=== PATIENT | male | born 1940 | race Caucasian/White ===

== ENCOUNTER 2023-05-07 10:41 | Inpatient (IN) | payer MEDICARE, BC | END 2023-05-08 17:00 | disposition short-term general hospital (02) | DRG 871 | LOC: ED 10:41 → CCU 16:40 | PROVIDERS: ADMIT Internal Medicine | PROC: 3E03329 Introduction of Other Anti-infective into Peripheral Vein, Percutaneous Approach (ICD-10-PCS; principal; 2023-05-07) | PROC: 3E033XZ Introduction of Vasopressor into Peripheral Vein, Percutaneous Approach (ICD-10-PCS; 2023-05-07) | PROC: 4A033R1 Measurement of Arterial Saturation, Peripheral, Percutaneous Approach (ICD-10-PCS; 2023-05-07) | DX: A40.8 Other streptococcal sepsis (principal); I26.99 Other pulmonary embolism without acute cor pulmonale; I50.33 Acute on chronic diastolic (congestive) heart failure; R57.0 Cardiogenic shock; I76 Septic arterial embolism; I11.0 Hypertensive heart disease with heart failure; I48.91 Unspecified atrial fibrillation; I25.10 Atherosclerotic heart disease of native coronary artery without angina pectoris; E66.01 Morbid (severe) obesity due to excess calories; Z20.822 Contact with and (suspected) exposure to COVID-19; Z79.899 Other long term (current) drug therapy; Z79.01 Long term (current) use of anticoagulants; Z79.82 Long term (current) use of aspirin; Z79.02 Long term (current) use of antithrombotics/antiplatelets; Z79.811 Long term (current) use of aromatase inhibitors; Z95.1 Presence of aortocoronary bypass graft; Z68.38 Body mass index [BMI] 38.0-38.9, adult ==

== ENCOUNTER 2025-07-28 14:12 | Inpatient (IN) | payer MEDICARE, BC ==
[~2025-07-28] VITALS: Ht 177.8 cm; Wt 115.8 kg
[~2025-07-28 14:12] MED LIST: ALLERCLEAR10 MG; ALLERGY RELIEF10 M1 PO; ALLOPURINOL300 MG PO; AMIODARONE HCL200 MG; AMLODIPINE BESYL5 MG PO; ASCORBIC ACID500 M3 PO; ASPIRIN81 MG PO; ATORVASTATIN CA20 MG PO; CARVEDILOL6.25 MG PO; CO Q-10300 MG PO; COREG25 MG; ELIQUIS5 MG PO; FIBER625 MG PO; FISH OIL 1,0001 EAC2 PO; GABAPENTIN600 MG PO; GLUCOSAMINE1000 MG PO; GRALISE300 MG PO; LIPITOR10 MG PO; LISINOPRIL10 MG PO; MAXIMUM DAILY1 EACH; OMEPRAZOLE20 MG PO; PANTOPRAZOLE SO40 MG PO; TIMOLOL MALEATE5 M2 OD; TURMERIC500 M2 PO; VITAMIN D350 MC3 PO; ZESTRIL5 MG PO
--- OUTSIDE RECORDS SUMMARY | 2025-07-28 14:23 | XMS ---
PreManage Notification: KENDAL CANTU Security Electrolysis Needle Operator Events No recent Security Events currently on file CRITERIA MET - [facility] - 2 Visits in 30 Days CARE PROVIDERS There are no care providers on record at this time. Alistair has no Care Guidelines for this patient. Denis VISIT COUNT (12 MO.) 1 [facility] [address] [place], [place] [address]Stephania TOTAL 2 NOTE: Visits indicate total known visits. ED/C VISIT TRACKING (12 MO.) 07/28/2025 14:12 ANGEL [facility] [place] TYPE: Emergency COMPLAINT: - SHORTNESS OF BREATH 07/07/2025 19:59 [facility] TYPE: Emergency DIAGNOSES: - Acute kidney failure, unspecified - Heart failure, unspecified - Non-pressure chronic ulcer of other part of right foot with unspecified severity - Pulmonary hypertension, unspecified - Shortness of Breath INPATIENT VISIT TRACKING (12 MO.) 07/07/2025 19:59 [facility] TYPE: Transplant DIAGNOSES: - Acute combined systolic (congestive) and diastolic (congestive) heart failure - Acute kidney failure, unspecified - Acute respiratory failure with hypoxia - Atrial septal defect, unspecified - Bradycardia, unspecified - Encounter for palliative care - Heart failure, unspecified - Hypotension, unspecified - Ischemic cardiomyopathy - Non-pressure chronic ulcer of other part of right foot with unspecified severity - Non-ST elevation (NSTEMI) myocardial infarction - Nonrheumatic mitral (valve) insufficiency - Paroxysmal atrial fibrillation - Personal history of (corrected) congenital malformations of heart and circulatory system - Pulmonary hypertension, unspecified - Typical atrial flutter - Unspecified open wound, left ankle, subsequent encounter 05/26/2025 09:02 [facility] TYPE: Cardiology DIAGNOSES: - Acute combined systolic (congestive) and diastolic (congestive) heart failure - Atherosclerosis of coronary artery bypass graft(s), unspecified, with other forms of angina pectoris - Chronic kidney disease, stage 3b - Essential (primary) hypertension - Nonrheumatic mitral (valve) insufficiency [email or web address]
[2025-07-28 14:36] LABS: BASOPHILS 0.1 % (0.2-1.2); EOSINOPHILS 1.2 % (0.8-7.0); LYMPHOCYTES 14.8 % (21.8-53.1); MCH 27.2 PG (25.7-32.2); MCHC 31.2 g/dL (32.3-36.5); MCV 87.0 fL (79.0-92.2); MONOCYTES 9.0 % (5.3-12.2); NEUTROPHILS 74.8 % (34.0-67.9); RBC 4.16 M/uL (4.63-6.08)
[2025-07-28] MEDS ORDERED: ELIQUIS2.5 MG PO (14:41)
[2025-07-28] MEDS ORDERED: METOPROLOL TART25 MG PO (14:43)
[2025-07-28] MEDS ORDERED: TORSEMIDE20 MG PO (14:44)
[2025-07-28] MEDS ORDERED: ALLOPURINOL300 MG PO (14:53)
[2025-07-28] MEDS ORDERED: KLOR-CON M1010 MEQ PO (14:54)
[2025-07-28] MEDS ORDERED: PLAVIX75 MG PO (14:54)
[2025-07-28] MEDS ORDERED: METOLAZONE5 MG PO (14:56)
[2025-07-28 14:58] LABS: ALT (SGPT) 75.0 U/L (14-59); AST (SGOT) 54.0 U/L (15-37); GLOMERULAR FILTRATION RATE,EST 21.0 mL/min (>60); PROTEIN, TOTAL 7.8 g/dL (6.4-8.2); UREA NITROGEN 80.0 mg/dL (7-18)
[2025-07-28] MEDS ORDERED: FUROSEMIDE 100 MG/10 ML VIAL IV ONE (15:45)
[2025-07-28] MEDS ORDERED: metOLazone 2.5 MG TAB PO SCH (17:18)
[2025-07-28] MEDS ORDERED: POTASSIUM CHLORIDE 10 MEQ TABCR PO ONE ×2 (17:30→20:00)
[2025-07-28 18:47] VITALS: BP 122/78
--- NOTE | 2025-07-28 19:15 | NUR ---
REPORT RECEIVED FROM ARTIE RN AND GEOVANI ARZATE. PATIENT RESTING IN BED COMFORTABLY, SON BROUGHT HOME CPAP FOR PATIENT, RT CONTACTED REGARDING HOME CPAP. RESPIRATIONS EVEN AND UNLABORED, NC IN PLACE 5L AT THIS TIME. CPOX AT BEDSIDE. TELE #[address] PATIENT DENIES FURTHER NEEDS, CALL LIGHT IN REACH
[2025-07-28] MEDS ORDERED: metOLazone 2.5 MG TAB PO ONE (20:00)
[2025-07-28 20:01] VITALS: BP 116/74
[2025-07-28 20:02] VITALS: BP 116/74
--- NOTE | 2025-07-28 20:04 | NUR ---
PATIENT MEDICATED PER EMAR. PASSED SWALLOW EVAL. FLATWORK FINISHER HAND IN ROOM TO DRAW BLOOD PER ORDER. PATIENT DENIES FURTHER NEEDS, CALL LIGHT IN REACH
[2025-07-28] MEDS ORDERED: METOPROLOL TARTRATE 25 MG TAB PO SCH (21:00)
[2025-07-28] MEDS ORDERED: APIXABAN 2.5 MG TAB PO SCH (21:00)
[2025-07-28] MEDS ORDERED: TORSEMIDE 20 MG TAB PO SCH (21:00)
[2025-07-28] MEDS ORDERED: GABAPENTIN 300 MG CAP PO SCH (21:00)
[2025-07-28] MEDS ORDERED: GABAPENTIN 100 MG CAP PO SCH (21:00)
[2025-07-28 21:08] VITALS: BP 119/72
--- NOTE | 2025-07-28 21:15 | NUR ---
PATIENT GIVEN SCHEDULED MEDICATIONS PER ORDER. VS OBTAINED AND RECORDED, OUTPUT DOCUMENTED. FULL ASSESSMENT COMPLETE, CLEAN LINENS UNDER PATIENT. PATIENT HAS CPAP IN PLACE, RESPIRATIONS EVEN AND UNLABORED. HE REPORTS NUMBNESS AND TINGLING IN HIS BLE, WHICH HE STATES IS CHRONIC D/T NEUROPATHY. BLE ARE WRAPPED WITH COBAN AND GUAZE, PATIENT SEES WOUND CARE IN [place]. DID NOT VISUALIZE WOUNDS UNDER WRAP. PATIENT DENIES FURTHER NEEDS, CALL LIGHT IN REACH.
--- NOTE | 2025-07-28 23:39 | NUR ---
ROUNDED ON PATIENT, PATIENT RESTING WITH EYES CLOSED. RESPIRATIONS EVEN AND UNLABORED, CPAP IN PLACE. CPOX AT BEDSIDE. NO NEEDS IDENTIFIED, CALL LIGHT IN REACH
[2025-07-29] VITALS (11 sets, daily range): BP systolic 109–121; BP diastolic 67–76
--- NOTE | 2025-07-29 01:35 | NUR ---
TUBER MACHINE OPERATOR OBTAINED VITALS AND I&O. PT STATES NO NEEDS AT THIS TIME. CALL LIGHT WITHIN REACH,
--- NOTE | 2025-07-29 03:06 | NUR ---
CALL LIGHT ANSWERED, PATIENT UP TO BSC WITH X2 PERSON HEAVY ASSIST. PATIENT STATED HAD TO HAVE BM, ONLY SMEAR. BACK TO BED, PATIENT VERY DIFFICULTY TO MOVE. REPOSITIONED AND BOOSTED IN BED. 4L NC ON PATIENT WITH AMBULATION, CPAP ON PATIENT WHEN BACK IN BED. DENIES FURTHER NEEDS, CALL LIGHT IN REACH. GIVEN FRESH WATER.
[2025-07-29 05:41] LABS: BASOPHILS 0.3 % (0.2-1.2); EOSINOPHILS 1.0 % (0.8-7.0); LYMPHOCYTES 16.6 % (21.8-53.1); MCH 27.4 PG (25.7-32.2); MCHC 31.9 g/dL (32.3-36.5); MCV 85.8 fL (79.0-92.2); MONOCYTES 8.7 % (5.3-12.2); NEUTROPHILS 73.3 % (34.0-67.9); RBC 3.87 M/uL (4.63-6.08)
--- NOTE | 2025-07-29 05:45 | NUR ---
ROUNDED ON PATIENT, VS OBTAINED AND RECORDED. OUTPUT DOCUMENTED. CPAP IN PLACE, PATIENT RESTING WITH EYES CLOSED, RESPIRATIONS EVEN AND UNLABORED. NO NEEDS IDENTIFIED, CALL LIGHT IN REACH
[2025-07-29 05:52] LABS: GLOMERULAR FILTRATION RATE,EST 22.0 mL/min (>60); UREA NITROGEN 87.0 mg/dL (7-18)
--- NOTE | 2025-07-29 06:02 | EKG ---
[facility] [address] [place], [place] [address] Signed Undetermined rhythm Rightward axis Nonspecific intraventricular conduction delay ST \T\ T wave abnormality, consider inferolateral ischemia Abnormal ECG No previous ECGs available Confirmed by JOÃO VIGIL MD ([id number]) on 07/29/2025 6:02:06 AM Electronically Signed By: JOÃO VIGIL 07/29/25 0602 PATIENT NAME: KENDAL CANTU Electrocardiogram DATE OF : 38 PHYSICIAN: JOÃO VIGIL REPORT #: [id number] REPORT IS CONFIDENTIAL AND NOT TO BE RELEASED WITHOUT AUTHORIZATION
--- NOTE | 2025-07-29 07:45 | NUR ---
RECEIVED REPORT FROM GEOVANI EDWARDS. PT LAYING IN BED W/ EYES CLOSED/CPAP ON. NO NEEDS AT THIS TIME. CALL LIGHT WITHIN REACH.
--- NOTE | 2025-07-29 08:12 | NUR ---
ALERT AND ORIENTED IN BED. ASSIST WITH HEARING AIDES. PATIENT LIVES IN HOUSE. HAS NO STAIRS, DOES HAVE A RAMP TO GET INSIDE. PATIENT HAS WALKER, SHOWER CHAIR AND CPAP. STATES HE DRIVES AT BASELINE. HAS NO FINANCIAL ISSUES, HE IS ABLE TO PAY UTILITIES AND FOR FOOD AND MEDICATIONS WITHOUT DIFFICULTY. PLANS TO DC TO HOME WHEN MEDICALLY READY. CURRENTLY ON ROOM AIR.
[2025-07-29] MEDS ORDERED: PANTOPRAZOLE SODIUM 40 MG TABEC PO SCH (09:00)
[2025-07-29] MEDS ORDERED: ATORVASTATIN 40 MG TAB PO SCH (09:00)
--- NOTE | 2025-07-29 09:07 | NUR ---
RECIEVED CALL FROM NEELA AT [facility]. THEY CURRENTLY HAVE PATIENT ON SERVICES AND WILL NEED RESUMPTION ORDERS WHEN HE DISCHARGES. REQUESTING PHYSICIAN NOTES. FAXED NOTES TO [facility]
[2025-07-29] MEDS ORDERED: POTASSIUM CHLORIDE 10 MEQ TABCR PO ONE (09:30)
--- NOTE | 2025-07-29 10:14 | NUR ---
UR CLINICAL REVIEW: 2 MN FOR VERSALUS-PER TUBE SIZER AND CUTTER OPERATOR MEETS INPT FOR CHF WITH NEED FOR IV DIURESIS, SERIAL LABS AND MONITORING MEDICARE INPT 07/28/25 @ 7844 ORDER MATCHES REG NO AUTH REQUIRED PER MEDICARE GUIDELINES DISCHARGE TO HOME WHEN STABLE
[2025-07-29] MEDS ORDERED: ALBUTEROL SULFATE 0.083% 3 ML VIAL INH PRN (10:30)
[2025-07-29] MEDS ORDERED: PHARMACY RENAL DOSE ADJUSTMENT 1 DOSE MISC PO SCH (12:00)
[2025-07-29 12:28] LABS: GLOMERULAR FILTRATION RATE,EST 22.0 mL/min (>60); UREA NITROGEN 88.0 mg/dL (7-18)
[2025-07-29] MEDS ORDERED: POLYETHYLENE GLYCOL 3350 1 PACKET PO SCH (12:45)
[2025-07-29] MEDS ORDERED: IPRATROPIUM BROMIDE 2.5 ML VIAL INH SCH (14:00)
--- NOTE | 2025-07-29 14:48 | NUR ---
DOCKETING SPECIALIST ASKS FOR A WOUND CONSULT ON THIS PATIENT. I PRESENT TO PATIENT'S ROOM AND PATIENT AND SPOUSE BOTH VERBALIZE THEY ARE CURRENTLY UNDER THE DIRECT CARE OF DR VICTORIA OF BILATERAL LEG/HEEL/FOOT WOUNDS. I RELAY THIS TO ENTERTAINMENT DIRECTOR, VIVEK, AND SHE VERBALIZES SHE WILL FOLLOW UP WITH DR VICTORIA FOR WOUND ORDERS.
[2025-07-29] MEDS ORDERED: CO Q-10300 MG PO (16:02)
[2025-07-29] MEDS ORDERED: ZYRTEC10 MG PO (16:02)
[2025-07-29] MEDS ORDERED: VITAMIN D3125 MC2 PO (16:02)
--- NOTE | 2025-07-29 16:03 | NUR ---
MED REC COMPLETE
--- NOTE | 2025-07-29 17:13 | NUR ---
DR. VIGIL CONTACTED VIA PHONE TO NOTIFY THAT PT HAS LOWER EXTREMITY WOUNDS, MANAGED DR. VICTORIA AND [facility]. DISCUSSED CURRENT HOME HEALTH WOUND CARE ORDERS AND DRESSING PT ARRIVED IN. ORDERED RECEIVED TO CONTINUE WITH CURRENT WOUND CARE. UNNA'S BOOTS IN PLACE TO BLE UPON ASSESSMENT, REMOVED. NOTED NEWLY EPILETHIALIZED WOUND TO LEFT FOX, LEFT OPEN TO AIR. FULL THICKNESS WOUND TO RIGHT LATERAL LOWER LEG, PERIWOUND INTACT. FULL THICKNESS WOUND TO RIGHT PLANTAR SURFACE OVER FIRST METATARSAL HEAD, EDGES ARE THICKEND WITH CALLUS OVER PERIWOUND. WOUND BASE IS PINK, NON-GRANULAR AND DULL. OFF LOADING FELT IN PLACE AROUND WOUND BASE UPON ASSESSMENT, LEFT IN PLACE. VASHE SOAK APPLIED OVER EACH WOUND BASE AND ALLOWED TO SOAK X10 MINUTES. BLE INTACT SINK CLEANSED WITH VASHE. CAVILON SKIN BARRIER FILM APPLIED TO PERIWOUND SKIN OF EACH WOUND AND ALLOWED TO DRY. MAXORB SILVER ALGINATE PLACED IN WOUND BASE OF RIGHT FOOT WOUND AND COVERED WITH PLAIN FOAM. SORBACT CONTACT LAYER PLACED OVER RIGHT LATERAL LOWER EXTREMITY WOUND AND COVERED WITH PLAIN FOAM. UNNA-Z APPLIED TO BLE FROM TOES TO KNEE FOLLOWED BY CAST PADDING AND COBAN AT 50% STRETCH. PT TOLERATED WELL. INDUSTRIAL MAINTENANCE REPAIRER HELPER < 3 TO BLE, MOTION INTACT. LOS R/T NEUROPATHY. HEMOSIDERIN STAINING NOTED TO BLE IN GAITER REGION. TRACE EDEMA NOTED IN LLE, 2+ IN RLE.
--- NOTE | 2025-07-29 17:51 | NUR ---
pt had a bloody nares. dry nares and O2 usage. was using vaseline lotion to nares. instructed not to and kyjelly given instead. reasoning explained, stated understanding. brought multiple eye drops. instructed not to use until MD approves. "I have dry eyes and need those drops". removed and will ask MD for approval
--- NOTE | 2025-07-29 18:00 | NUR ---
PT BACK TO BED. BLANKETS FOR WARMTH AND PARTIAL LINEN CHANGE. TOOK OUT TRASH AND EMPTIED PUREWICK. ROOM CLEANED UP AND PT IN BED - VISITORS LEFT THE ROOM. CALL LIGHT WITHIN REACH.
--- NOTE | 2025-07-29 19:48 | NUR ---
KENDAL DECLINED NEBULIZED TREATMENT AFTER THE MEDICATIONS WERE SCANNED IN AND PLACED IN THE NEBULIZER CUP. RT FILLED HUMIDIFICATION IN PATIENT'S HOME AUTO CPAP.
[2025-07-29] MEDS ORDERED: BUDESONIDE 0.5 MG/2 ML VIAL INH SCH (20:00)
--- NOTE | 2025-07-29 20:50 | NUR ---
PT ASSESSED AND MEDICATIONS GIVEN. VSS. PT ON RA. TELE READING PACED RHYTHM. IV X2 FLUSHED AND PATENT, SL. EDEMA NOTED +3 ON BLE. KRISTYN BOOTS NOTED ON BLE. BOTTOM NOTED TO HAVE BLANCHABLE REDNESS. GENERALIZED BRUISING NOTED. BED ALARM ON. SAFETY PRECAUTIONS MAINTAINED. CALL LIGHT WITHIN REACH. WILL CONTINUE TO MONITOR.
--- NOTE | 2025-07-29 23:24 | NUR ---
CALL LIGHT ANSWERED. PT NEEDED TO USE BATHROOM. THIS LABELING ASSOCIATE AND GEOVANI GARCIA 2PA WITH [facility] TO [facility]. PT HAD SMALL BM AND DRAW SHEET AND CHUCKS PAD CHANGED. PT ASSISTED BACK TO BED. PT STATES NO FURTHER NEEDS AT THIS TIME. CALL LIGHT WITHIN REACH.
[2025-07-30] VITALS (12 sets, daily range): BP systolic 87–113; BP diastolic 44–67
--- NOTE | 2025-07-30 06:26 | NUR ---
PT RESTED SOME DURING THE SHIFT. VSS. PT RA WHEN AWAKE, USES HOME CPAP WHEN SLEEPING. PT ASSISTED UP TO BSC DURING SHIFT. SMALL BM NOTED. MALE PUREWICK IN PLACE, SOME OUTPUT NOTED. SAFETY PRECAUTIONS MAINTAINED. CALL LIGHT WITHIN REACH. WILL CONTINUE TO MONITOR.
[2025-07-30 06:29] LABS: BASOPHILS 0.2 % (0.2-1.2); EOSINOPHILS 0.3 % (0.8-7.0); LYMPHOCYTES 17.0 % (21.8-53.1); MCH 27.2 PG (25.7-32.2); MCHC 31.4 g/dL (32.3-36.5); MCV 86.6 fL (79.0-92.2); MONOCYTES 10.7 % (5.3-12.2); NEUTROPHILS 71.5 % (34.0-67.9); RBC 3.82 M/uL (4.63-6.08)
[2025-07-30 06:38] LABS: GLOMERULAR FILTRATION RATE,EST 20.0 mL/min (>60); UREA NITROGEN 89.0 mg/dL (7-18)
--- NOTE | 2025-07-30 07:32 | NUR ---
PATIENT IN CHAIR AT THIS TIME. POINT OF CARE SPECIALIST ASSISTED PATIENT TO BEDSIDE COMMODE FROM BED AND THEN TO CHAIR. THIS POINT OF CARE SPECIALIST CHANGED PATIENTS LINENS. CALL LIGHT WITHIN REACH, NO FURTHER NEEDS AT THIS TIME.
[2025-07-30] MEDS ORDERED: SPIRONOLACTONE 25 MG TAB PO SCH (09:15)
--- NOTE | 2025-07-30 10:05 | NUR ---
PT CALLS, THIS RN TO BEDSIDE. PT STATES HE WOULD LIKE TO PUT ON HIS CPAP, THIS RN ASSISTS PT WITH PLACEMENT OF CPAP. CPAP MACHINE OUT OF WATER, RT CALLED AND STATES THEY WILL BRING SOME. PT AND STATE NO FURTHER NEEDS AT THIS TIME, CALL LIGHT WITHIN REACH.
--- NOTE | 2025-07-30 10:54 | NUR ---
Patient is awake, alert and oriented x3, no acute distress. Patient reports improved shortness of breath. Patient stood and marched with physical therapy, 2p standby assist with walker. Patient assisted back to bed, pt requesting to take a nap with cpap machine. Patient's at bedside.
[2025-07-30] MEDS ORDERED: XALATAN2.5 ML OU (14:27)
[2025-07-30 14:39] LABS: GLOMERULAR FILTRATION RATE,EST 18.0 mL/min (>60); UREA NITROGEN 94.0 mg/dL (7-18)
--- NOTE | 2025-07-30 16:38 | NUR ---
Patient reports nausea. Vital signs are stable, afebrile. Admin zofran 4mg iv at this time. Patient's at bedside.
--- NOTE | 2025-07-30 18:37 | NUR ---
RUDI CARE AND NEW PUREWICK PLACED BY THIS TECHNICAL EXPERT. CALL LIGHT AND PERSONAL ITEMS ARE WITHIN REACH. NO OTHER CARES WERE REQUESTED.
--- NOTE | 2025-07-30 19:49 | NUR ---
GOT REPORT FROM DAY SHIFT NURSE.
--- NOTE | 2025-07-30 20:46 | NUR ---
PT SITTING UP IN BED WATCHIN TV. VITALS DONE, WATER REFILLED, BOOSTED UP IN BED. CALL LIGHT IN REACH, NO NEEDS AT THIS TIME.
[2025-07-30] MEDS ORDERED: ARTIFICIAL TEARS 15 ML BTL OU SCH (21:00)
[2025-07-30] MEDS ORDERED: LATANOPROST EYE DROPS OU SCH (21:00)
--- NOTE | 2025-07-30 22:09 | NUR ---
PATIENT RESTING WITH NC IN. PUREWICK IN PLACE. PATIENT HAS UNNA BOOTS ON. IS AT HOME GETTING REST. HE WOULD LIKE HER ADVISED OF EVERYTHING OR ANY CHANGES. PT IS SL BUT IV ACCESS IS INCORRECT IN CHARTING. PATIENT HAS A LEFT HAND IV AND A RIGHT AC IV. BOTH SL. WATER AT BEDSIDE. CALL LIGHT WITHIN REACH, BED IN LOW POSTION.
--- NOTE | 2025-07-30 22:39 | NUR ---
PATIENT UP TO BEDSIDE COMMODE WITH 2 PERSON ASSIST FOR A BM.
--- NOTE | 2025-07-30 23:43 | NUR ---
PATIENT SLEEPING, REGULAR RESPIRATIONS NOTED.
--- NOTE | 2025-07-31 01:05 | NUR ---
RT WAS ON THE FLOOR, ASKED HER TO CHECK ON PATIENT THIS NURSE FEELS LIKE HE HAS SOME AIR HUNGER BUT HIS OXYGEN IS HOLDING GOOD ON 1L. PT WAS UP TO THE COMMODE AND HAD A SOFT BOWEL MOVEMENT.
[2025-07-31 01:48] VITALS: BP 123/83
--- NOTE | 2025-07-31 01:50 | NUR ---
ASSISTED PT OOB TO BSC AND BACK TO BED IN LEFT SIDE LYING POSITION. VITALS DONE, PUREWICK EMPTIED. CALL LIGHT IN REACH, NO NEEDS AT THIS TIME.
--- NOTE | 2025-07-31 02:24 | NUR ---
PATIENT SLEEPING ON HIS LEFT SIDE.
[2025-07-31 02:32] VITALS: BP 123/83
[2025-07-31 04:39] VITALS: BP 109/66
--- NOTE | 2025-07-31 04:42 | NUR ---
PATIENT UP TO BEDSIDE COMMODE WITH ASSISTANT STATISTICIAN AND NURSE. PATIENT HAD SMALL SOFT BM. VITALS DONE AND DAILY WEIGHT DONE. PATIENT DOWN TO 115.8KG THIS MORNING. PATIENT REQUESTING TO SLEEP ON HIS LEFT SAID AGAIN. BED LOW, CALL LIGHT WITHIN REACH. PATIENT HAD SOME WATER.
--- NOTE | 2025-07-31 05:36 | NUR ---
PATIENT FINALLY LOOKS LIKE HE IS GETTING SOME REST.
--- NOTE | 2025-07-31 07:45 | NUR ---
REPORT RECIEVED FROM GEOVANI REYES. PATIENT CALLED REQUESTING TO USE THE BATHROOM FOR A BM. GEOVANI MORENO AND THIS RN ASSISTED PATIENT TO BEDSIDE COMMODE. PATIENT TOLERATED WELL. OXYGEN TURNED UP TO 3L NC DUE TO PATIENT WITH SOB WITH ACTIVITY. PATIENT EDUCATED TO USE CALL LIGHT WHEN FINISHED WITH COMMODE. PATIENT WITH VERBAL UNDERSTANDING. CALL LIGHT IS WITHIN REACH.
--- NOTE | 2025-07-31 08:01 | NUR ---
PATIENT FINISHED WITH COMMODE. TIFFANIE RN AND THIS RN IN ROOM ASSISTING PATIENT. PATIENT UP TO CHAIR AFTER COMMODE AND TOLERATED WELL. BREAKFAST TRAY SET UP IN FROM OF PATIENT. WARM BLANKET PROVIDED. PATIENT IS WITHOUT FURTHER NEEDS AT THIS TIME. CALL LIGHT AND PERSONAL BELONGINGS ARE WITHIN REACH.
--- NOTE | 2025-07-31 09:30 | NUR ---
In with pt with the respiratory therapist to assist her with qualifying the pt for home O2. The pt states he is on O2 at home but doesn't know how much, but that his knows. After ambulating with the RT, it is noted that the pt had to stop twice and required 4LPM via NC. Sats dropped down to 77 at the lowest. Pt back to bed. arrives and is speaking with RT now.
[2025-07-31 09:38] VITALS: BP 92/55
--- NOTE | 2025-07-31 09:40 | NUR ---
PT SITTING IN CHAIR, VISITORS IN THE ROOM. NC OFF AT THIS TIME. PT BREATHING WELL. CALL LIGHT WITHIN REACH. TRASH REMOVED AND ROOM CLEANED.
--- NOTE | 2025-07-31 09:49 | NUR ---
PATIENT'S METOLAZONE HELD DUE TO PATIENT'S BLOOD PRESSURE OF 98/51 WITH A MAP OF 63. DR VIGIL NOTIFIED. MD WITH VERBAL ORDER TO HOLD DOSE FOR TODAY.
[2025-07-31] MEDS ORDERED: METOLAZONE2.5 MG PO (09:56)
--- NOTE | 2025-07-31 10:00 | NUR ---
PATIENT SITTING UP IN HIS CHAIR WITH HIS AT BEDSIDE. PATIENT ASSESSMENT COMPLETED. PATIENT DENIES ANY PAIN OR NEEDS AT THIS TIME. CALL LIGHT AND PERSONAL BELONGINGS ARE WITHIN REACH.
[2025-07-31 10:09] VITALS: BP 92/55
--- NOTE | 2025-07-31 11:26 | NUR ---
PATIENT UP IN CHAIR. PT AND EDUCATION OFFICER IN ROOM ASSISTING PATIENT WITH AMBULATION. CALL LIGHT IS WITHIN REACH. PATIENT'S AT BEDSIDE.
[2025-07-31 11:51] VITALS: BP 97/60
--- NOTE | 2025-08-01 09:55 | NUR ---
CLINICALS, FACESHEET, NOTES, ORDER FAXED TO [facility].
== END 2025-07-31 13:05 | disposition home or self-care (01) | DRG 280 ==
LOC: ED 14:12 → MS 17:19
PROVIDERS: Emergency Medicine; ADMIT Internal Medicine; ATTEND Internal Medicine
DX: I11.0 Hypertensive heart disease with heart failure (principal); I50.43 Acute on chronic combined systolic (congestive) and diastolic (congestive) heart failure; I21.A1 Myocardial infarction type 2; J96.01 Acute respiratory failure with hypoxia; N17.9 Acute kidney failure, unspecified; Q21.0 Ventricular septal defect; I48.91 Unspecified atrial fibrillation; E78.00 Pure hypercholesterolemia, unspecified; G47.33 Obstructive sleep apnea (adult) (pediatric); Z99.89 Dependence on other enabling machines and devices; Z95.1 Presence of aortocoronary bypass graft; Z79.01 Long term (current) use of anticoagulants; Z79.899 Other long term (current) drug therapy; Z95.0 Presence of cardiac pacemaker
CPT/HCPCS: 36415; 71045; 80048; 80053; 83735; 83880; 84484; 85025; 93005; 93010; 94640; 94762; 94799; 96374; 97162; 97530; 99285-25; A6590; A9270; J1938; J2405

== ENCOUNTER 2025-08-05 12:58 | Inpatient (IN) | payer MEDICARE, BC ==
[~2025-08-05] VITALS: Ht 177.8 cm; Wt 123.4 kg
[~2025-08-05 12:58] MED LIST changes: +ELIQUIS2.5 MG PO; +KLOR-CON M1010 MEQ PO; +METOLAZONE2.5 MG PO; +METOLAZONE5 MG PO; +METOPROLOL TART25 MG PO; +PLAVIX75 MG PO; +TORSEMIDE20 MG PO; +VITAMIN D3125 MC2 PO; +XALATAN2.5 ML OU; +ZYRTEC10 MG PO
--- OUTSIDE RECORDS SUMMARY | 2025-08-05 13:04 | XMS ---
PreManage Notification: KENDAL CANTU Security Supervisor Hanging And Trimming Events No recent Security Events currently on file CRITERIA MET - [facility] - 2 Visits in 30 Days CARE PROVIDERS There are no care providers on record at this time. Alistair has no Care Guidelines for this patient. Denis VISIT COUNT (12 MO.) 2 [facility] NOTE: Visits indicate total known visits. ED/C VISIT TRACKING (12 MO.) 08/05/2025 12:58 [facility] [place] TYPE: Emergency COMPLAINT: - ALTERED MENTAL STATUS 07/28/2025 14:12 [facility] [place] TYPE: Emergency COMPLAINT: - SHORTNESS OF BREATH 07/07/2025 19:59 [facility] TYPE: Emergency DIAGNOSES: - Acute kidney failure, unspecified - Heart failure, unspecified - Non-pressure chronic ulcer of other part of right foot with unspecified severity - Pulmonary hypertension, unspecified - Shortness of Breath INPATIENT VISIT TRACKING (12 MO.) 07/28/2025 17:19 AN[facility]EL [facility] [place] TYPE: Medical Surgical COMPLAINT: - CHF DIAGNOSES: - Acute kidney failure, unspecified - Acute on chronic combined systolic (congestive) and diastolic (congestive) heart failure - Acute respiratory failure with hypoxia - Dependence on other enabling machines and devices - Hypertensive heart disease with heart failure - intermediate card tender (current) use of anticoagulants - Myocardial infarction type 2 - Obstructive sleep apnea (adult) (pediatric) - Other intermediate (current) drug therapy - Presence of aortocoronary bypass graft - Presence of cardiac pacemaker - Pure hypercholesterolemia, unspecified - Shortness of breath - Unspecified atrial fibrillation - Ventricular septal defect 07/07/2025 19:59 [facility] TYPE: Transplant DIAGNOSES: - [...] wound, left ankle, subsequent encounter 05/26/2025 09:02 [facility] TYPE: Cardiology DIAGNOSES: - Acute combined systolic (congestive) and diastolic (congestive) heart failure - Atherosclerosis of coronary artery bypass graft(s), unspecified, with other forms of angina pectoris - Chronic kidney disease, stage 3b - Essential (primary) hypertension - Nonrheumatic mitral (valve) insufficiency [email or web address]
[2025-08-05 13:34] LABS: BASOPHILS 0 % (0.2-1.2); EOSINOPHILS 0.1 % (0.8-7.0); LYMPHOCYTES 8.9 % (21.8-53.1); MCH 26.9 PG (25.7-32.2); MCHC 32.8 g/dL (32.3-36.5); MCV 81.8 fL (79.0-92.2); MONOCYTES 5.6 % (5.3-12.2); NEUTROPHILS 84.9 % (34.0-67.9); RBC 4.17 M/uL (4.63-6.08)
[2025-08-05 13:57] LABS: ALT (SGPT) 280.0 U/L (14-59); AST (SGOT) 339.0 U/L (15-37); GLOMERULAR FILTRATION RATE,EST 8.0 mL/min (>60); PROTEIN, TOTAL 6.6 g/dL (6.4-8.2); UREA NITROGEN 139.0 mg/dL (7-18)
[2025-08-05] MEDS ORDERED: ARTIFICIAL TEARS 15 ML BTL OU PRN (18:00)
[2025-08-05] MEDS ORDERED: HALOPERIDOL LACTATE 5 MG/ML VIAL IV PRN ×2 (18:00)
[2025-08-05] MEDS ORDERED: MORPHINE SULFATE 10 MG/ML VIAL IV PRN (18:00)
[2025-08-05] MEDS ORDERED: LORazepam 2 MG/ML VIAL IV PRN ×3 (18:00)
[2025-08-05] MEDS ORDERED: ATROPINE SULFATE 1% OPTH DROPS SL PRN (18:00)
[2025-08-05] MEDS ORDERED: MORPHINE SULFATE 4 MG/ML VIAL IV PRN ×2 (18:00)
[2025-08-05] MEDS ORDERED: ONDANSETRON 4 MG TAB ODT SL PRN (18:00)
[2025-08-05] MEDS ORDERED: PROCHLORPERAZINE MALEATE 10 MG TAB PO PRN (18:00)
[2025-08-05 18:47] VITALS: BP 122/75
--- NOTE | 2025-08-05 18:53 | NUR ---
Patient to the medical floor. Patient is alert to self and place. SP02 80%, pt denies wanting oxygen and or cpap. Patient verbalized "i'm ready to go". Patient's and daughter at bedside. Patient's respirations are labored. Patient has hearing aids in place. Patient tolerating sips of water for comfort, swallow is intact.
[2025-08-05] MEDS ORDERED: SCOPOLAMINE 1 MG/3 DAYS PATCH 1 EACH TDSY TD SCH (19:00)
--- NOTE | 2025-08-05 19:30 | NUR ---
RECEIVED REPORT FROM GEOVANI SINGLETON. LEAD RETAIL SALES ASSOCIATE'S IN ROOM APPLYING MALE PUREWICK. PT DENIES NEEDS AT THIS TIME. FAMILY AT BEDSIDE.
--- NOTE | 2025-08-05 19:31 | NUR ---
THIS SCRUB TECH AND SCRUB TECH JEFFERSON PLAACED MALE FRANCISCOWILYNN AND PLACED A BRIEF ON PT. PT STATES NO FURTHER NEEDS AT THIS TIME. CALL LIGHT WITHIN REACH AND FAMILY IN ROOM.
--- NOTE | 2025-08-05 19:40 | NUR ---
MD CONTACTED REGARDING PT'S PACEMAKER AND COMFORT CARE STATUS. MD WILL COME TO BEDSIDE TO DISCUSS W/ PT AND FAMILY.
--- NOTE | 2025-08-05 21:00 | NUR ---
PT RESTING IN BED SURROUNDED BY FAMILY. SLIGHTLY RESTLESS, WANTS TO SIT EOB. PT REQUIRED 2 MAX ASSIST W/ BED MOBILTY SO EOB ACTIVITY DEFERRED. PT ORIENTED X 3, NOT TO DATE. DENIES PAIN. LSC DIM, PT HAS 1L O2 N/C IN PLACE PER PT REQUEST FOR COMFORT. HRIR W/ MURMUR. 2+ EDEMA TO BLE, PT HAS COMPRESSION WRAPS IN PLACE-UNABLE TO ASSESS PP. PTS SPOUSE REPORTS SOME BLISTERS UNDER WRAPS (UNABLE TO VISUALIZE). BTA, ABD OBESE. PT HAS MALE EXTERNAL CATH IN PLACE. RAC IV SL'D, WNL. SKIN IS COOL AND PALE. BRUISES NOTED TO CHEST AT PACEMAKER SITE. CALL LIGHT WITHIN REACH. BED ALARM IN PLACE FOR SAFETY.
--- NOTE | 2025-08-05 21:09 | NUR ---
PT'S FAMILY IS READY FOR MAGNET TO BE APPLIED TO PACEMAKER. DR. NESS NOTIFIED, WILL BE IN ROOM TO APPLY SOON.
--- NOTE | 2025-08-05 22:00 | NUR ---
PT CONTINUES TO BE RESTLESS, FAMILY AT BEDSIDE REQUESTING INTERVENTION. PRN MORPHINE ADMINISTERED.
[2025-08-05 22:06] VITALS: BP 122/75
--- NOTE | 2025-08-05 22:18 | EKG ---
[facility] [address] [place] [address] Signed Ventricular-paced rhythm Abnormal ECG When compared with ECG of 28-JUL-2025 14:13, premature ventricular complexes are no longer present Confirmed by Vikram Ness MD () on 08/05/2025 10:18:33 PM Electronically Signed By: VIKRAM NESS MD 08/05/25 2218 PATIENT NAME: KENDAL CANTU Electrocardiogram DATE OF : 38 PHYSICIAN: VIKRAM NESS MD REPORT #: [id number] REPORT IS CONFIDENTIAL AND NOT TO BE RELEASED WITHOUT AUTHORIZATION
--- NOTE | 2025-08-05 23:35 | NUR ---
PT ASLEEP, SOME LIMB MOVEMENT NOTED. FAMILY ASLEEP AT BEDSIDE.
--- NOTE | 2025-08-06 01:08 | NUR ---
PT ASLEEP, APPEARS COMFORTABLE.
--- NOTE | 2025-08-06 02:49 | NUR ---
PT SLEEPING, BREATHING LABORED. FAMILY ASLEEP AT BEDSIDE.
--- NOTE | 2025-08-06 03:20 | NUR ---
PT HAS PASSED. DTR AT BEDSIDE AWAKENED AND NOTIFIED. MD NOTIFIED AND EN ROUTE TO BEDSIDE.
--- NOTE | 2025-08-06 03:44 | NUR ---
CONFIRMED , TIME OF 032.
--- NOTE | 2025-08-06 05:20 | NUR ---
HOME HERE TO SHIFT LEADER. ALL BELONGINGS GIVEN TO PT'S DTR.
--- NOTE | 2025-08-08 09:13 | NUR ---
RETRO UR CLINICAL REVIEW FOR 08/05/25: 2 MN FOR VERSALUS-PER PATTERN ATTENDANT MEETS INPT FOR MULTIPLE ORGAN DYSFUNCTION WITH NEED FOR COMFORT CARE MEDICARE INPT 08/05/25 @ 1752 ORDER MATCHES REG NO AUTH REQUIRED PER MEDICARE GUIDELINES PATIENT 08/06/25 @ 4769
== END 2025-08-06 05:20 | DRG 951 ==
LOC: ED 12:58 → MS 18:13
PROVIDERS: Emergency Medicine; ADMIT Family Medicine; ATTEND Family Medicine
PROC: 0T9B70Z Drainage of Bladder with Drainage Device, Via Natural or Artificial Opening (ICD-10-PCS; principal; 2025-08-05)
DX: Z51.5 Encounter for palliative care (principal); I48.91 Unspecified atrial fibrillation; Z66 Do not resuscitate; I11.0 Hypertensive heart disease with heart failure; R45.1 Restlessness and agitation; I50.9 Heart failure, unspecified; Z99.89 Dependence on other enabling machines and devices; Z95.1 Presence of aortocoronary bypass graft; Z79.899 Other long term (current) drug therapy; Z79.01 Long term (current) use of anticoagulants; Z95.0 Presence of cardiac pacemaker
CPT/HCPCS: 36415; 71045; 80053; 82140; 82803; 83880; 84484; 85025; 93005; 93010; 99285-25; J2060; J2270